=== PATIENT | male | born 1995 | race Caucasian/White ===

== ENCOUNTER 2018-09-05 04:08 | Emergency (ER) | payer BC, OTHER ==
[~2018-09-05 04:08] MED LIST: AMOX-362 PO; CEF300 PO; CLAR-1 PO; FLUT16SP19 NS; METH4TAB66 PO
--- NOTE | 2018-09-05 04:11 | ER Report ---
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 Patient apparently broke up with his girlfriend 8 months ago and dropped out of school. He is feeling depressed for 8 or 9 months. Tonight at a republican he was expressing suicidal ideation to his friends. He states he was given the home and blow his brains out with a shotgun. He does have a shotgun and a 45 caliber pistol in his residence. He also plan to get into a hot bathtub and drink a large volume of alcohol. Officer that placed the patient on emergency half-way states that the patient has done some self cutting in the past. But none recently. REVIEW OF SYSTEMS: Respiratory: No cough, no dyspnea. Cardiovascular: No chest pain, no palpitations. Gastrointestinal: No vomiting, no abdominal pain. Musculoskeletal: No back pain. (ANTONIETA LOZANO DO) Allergies: Coded Allergies: No Known Drug Allergies (Unverified , 09/05/18) Home Meds Discontinued Scripts Clarithromycin (CLARITHROMYCIN) 500 Mg Tablet, 500 MG PO BID for 14 Days, #28 TAB Prov:BREANA GARNICA JR, MD 05/22/17 Methylprednisolone (METHYLPREDNISOLONE) 4 Mg Tab.ds.pk, 4 MG PO DIRECTED, #1 PACK Prov:BREANA GARNICA JR, MD 05/07/17 Cefdinir 300 Mg Cap (OMNICEF 300 MG CAP (OR EQUIV)) 300 Mg Cap, 300 MG PO BID for 14 Days, #28 CAP Prov:BREANA GARNICA JR, MD 05/07/17 Fluticasone Prop 50 Mcg Ns (FLONASE 50 MCG NS) 16 Gm [place].susp, 1-2 SPRAY NS QAM, #1 BOT Prov:LINDY ANGELES MD 04/28/17 Amoxicillin (AMOXICILLIN) 500 Mg Capsule, 2 CAP PO TID, #60 CAPSULE Prov:LINDY ANGELES MD 04/14/17 Past Medical/Surgical History Past Medical History Respiratory: Reports hx of: pneumonia (as a toddler) Endocrine: Reports hx of: other endocrine history (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, 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) Past Surgical History HEENT: Reports hx of: dental surgery (wisdom teeth removal 2014) (ANTONIETA LOZANO DO) Reviewed Nurses Notes: Yes Old Medical Records Reviewed: Yes (ANTONIETA LOZANO DO) Smoking Status: Never Smoker (ANTONIETA LOZANO DO) Constitutional Vital Sign - Last 24 Hours 09/05/18 09/05/18 09/05/18 09/05/18 04:11 04:12 04:23 04:30 Temp 97.5 Pulse 80 81 Resp 16 B/P (MAP) 144/105 144/105 (118) 148/105 (119) Pulse Ox 92 94 O2 Delivery Room Air 09/05/18 04:38 Pulse 87 Pulse Ox 93 (HERIBERTO BECERRIL MD) Physical Exam General Appearance: The patient is alert, has no immediate need for airway protection and no current signs of toxicity. Tearful, withdrawn, upset HEENT: Pupils equal and round no injection. Oropharynx without redness or exudate Respiratory: Chest is non tender, lungs are clear to auscultation. Cardiac: regular rate and rhythm Gastrointestinal: Abdomen is soft and non tender, no masses, bowel sounds normal. Musculoskeletal: Neck: Neck is supple and non tender. No lymphadenopathy, no thyromegaly Extremities have full range of motion and are non tender. Skin: No rashes or lesions. DIFFERENTIAL DIAGNOSIS: After history and physical exam differential diagnosis was considered for depression including functional and major depression, situational depression, medication side effect, suicidal ideation, drugs and alcohol abuse. (ANTONIETA LOZANO DO) Medical Decision Making Data Points Result Diagram: 09/05/18 0456 09/05/18 0456 Laboratory Hematology Test 09/05/18 04:56 09/05/18 05:00 Red Blood Count 5.46 M/uL (4.00-5.60) Mean Corpuscular Volume 89.1 fL (80.0-96.0) Mean Corpuscular Hemoglobin 31.3 pg (26.0-33.0) Mean Corpuscular Hemoglobin Concent 35.1 g/dL (32.0-36.0) Red Cell Distribution Width 12.4 % (11.5-14.5) Mean Platelet Volume 7.7 fL (7.2-11.1) Neutrophils (%) (Auto) 53.8 % (39.4-72.5) Lymphocytes (%) (Auto) 38.4 % (17.6-49.6) Monocytes (%) (Auto) 6.6 % (4.1-12.4) Eosinophils (%) (Auto) 0.7 % (0.4-6.7) Basophils (%) (Auto) 0.5 % (0.3-1.4) Nucleated RBC Relative Count (auto) 0.0 /100WBC Neutrophils # (Auto) 4.1 K/uL (2.0-7.4) Lymphocytes # (Auto) 2.9 K/uL (1.3-3.6) Monocytes # (Auto) 0.5 K/uL (0.3-1.0) Eosinophils # (Auto) 0.1 K/uL (0.0-0.5) Basophils # (Auto) 0.0 K/uL (0.0-0.1) Nucleated RBC Absolute Count (auto) 0.00 K/uL Sodium Level 146 mmol/L (137-145) Potassium Level 4.8 mmol/L (3.5-5.0) Chloride Level 103 mmol/L (98-107) Carbon Dioxide Level 28 mmol/L (22-30) Blood Urea Nitrogen 12 mg/dl (9-21) Creatinine 0.80 mg/dl (0.66-1.25) Glomerular Filtration Rate Calc > 60.0 Random Glucose 104 mg/dl (75-110) Calcium Level 9.8 mg/dl (8.4-10.2) Magnesium Level 2.3 mg/dl (1.7-2.2) Total Bilirubin 0.3 mg/dl (0.2-1.3) Aspartate Amino Transf (AST/SGOT) 45 U/L (0-35) Alanine Aminotransferase (ALT/SGPT) 34 U/L (0-56) Alkaline Phosphatase 63 U/L (0-126) Total Protein 8.2 g/dl (6.3-8.2) Albumin 5.3 g/dl (3.5-5.0) Salicylates Level < 10 mg/L Salicylate Last Dose Date unk Acetaminophen Level < 10 ug/ml Serum Alcohol 195 mg/dl Urine Color Yellow Urine Clarity Clear Urine pH 5.0 pH (4.8-9.5) Urine Specific [place] 1.013 Urine Protein Negative mg/dL (NEGATIVE) Urine Glucose (UA) Negative mg/dL (NEGATIVE) Urine Ketones Negative mg/dL (NEGATIVE) Urine Blood Negative (NEGATIVE) Urine Nitrite Negative (NEGATIVE) Urine Bilirubin Negative (NEGATIVE) Urine Urobilinogen Negative mg/dL (0.2-1.9) Urine Leukocyte Esterase Negative (NEGATIVE) Urine RBC <1 /HPF (0-2/HPF) Urine WBC 1 /HPF (0-5/HPF) Urine Squamous Epithelial Cells None /LPF (</=FEW) Urine Bacteria Negative /HPF (NONE-FEW) Urine Mucus None /HPF (NONE-FEW) Urine Opiates Screen Negative Urine Barbiturates Screen Negative Ur Tricyclic Antidepressants Screen Negative Urine Phencyclidine Screen Negative Urine Amphetamines Screen Negative Urine Benzodiazepines Screen Negative Urine Cocaine Screen Negative Urine Cannabinoids Screen Positive Chemistry Test 09/05/18 04:56 09/05/18 05:00 White Blood Count 7.6 k/uL (4.5-11.0) Red Blood Count 5.46 M/uL (4.00-5.60) Hemoglobin 17.1 g/dL (14.0-18.0) Hematocrit 48.6 % (42.0-52.0) Mean Corpuscular Volume 89.1 fL (80.0-96.0) Mean Corpuscular Hemoglobin 31.3 pg (26.0-33.0) Mean Corpuscular Hemoglobin Concent 35.1 g/dL (32.0-36.0) Red Cell Distribution Width 12.4 % (11.5-14.5) Platelet Count 301 K/uL (150-450) Mean Platelet Volume 7.7 fL (7.2-11.1) Neutrophils (%) (Auto) 53.8 % (39.4-72.5) Lymphocytes (%) (Auto) 38.4 % (17.6-49.6) Monocytes (%) (Auto) 6.6 % (4.1-12.4) Eosinophils (%) (Auto) 0.7 % (0.4-6.7) Basophils (%) (Auto) 0.5 % (0.3-1.4) Nucleated RBC Relative Count (auto) 0.0 /100WBC Neutrophils # (Auto) 4.1 K/uL (2.0-7.4) Lymphocytes # (Auto) 2.9 K/uL (1.3-3.6) Monocytes # (Auto) 0.5 K/uL (0.3-1.0) Eosinophils # (Auto) 0.1 K/uL (0.0-0.5) Basophils # (Auto) 0.0 K/uL (0.0-0.1) Nucleated RBC Absolute Count (auto) 0.00 K/uL Glomerular Filtration Rate Calc > 60.0 Calcium Level 9.8 mg/dl (8.4-10.2) Magnesium Level 2.3 mg/dl (1.7-2.2) Total Bilirubin 0.3 mg/dl (0.2-1.3) Aspartate Amino Transf (AST/SGOT) 45 U/L (0-35) Alanine Aminotransferase (ALT/SGPT) 34 U/L (0-56) Alkaline Phosphatase 63 U/L (0-126) Total Protein 8.2 g/dl (6.3-8.2) Albumin 5.3 g/dl (3.5-5.0) Salicylates Level < 10 mg/L Salicylate Last Dose Date unk Acetaminophen Level < 10 ug/ml Serum Alcohol 195 mg/dl Urine Color Yellow Urine Clarity Clear Urine pH 5.0 pH (4.8-9.5) Urine Specific [place] 1.013 Urine Protein Negative mg/dL (NEGATIVE) Urine Glucose (UA) Negative mg/dL (NEGATIVE) Urine Ketones Negative mg/dL (NEGATIVE) Urine Blood Negative (NEGATIVE) Urine Nitrite Negative (NEGATIVE) Urine Bilirubin Negative (NEGATIVE) Urine Urobilinogen Negative mg/dL (0.2-1.9) Urine Leukocyte Esterase Negative (NEGATIVE) Urine RBC <1 /HPF (0-2/HPF) Urine WBC 1 /HPF (0-5/HPF) Urine Squamous Epithelial Cells None /LPF (</=FEW) Urine Bacteria Negative /HPF (NONE-FEW) Urine Mucus None /HPF (NONE-FEW) Urine Opiates Screen Negative Urine Barbiturates Screen Negative Ur Tricyclic Antidepressants Screen Negative Urine Phencyclidine Screen Negative Urine Amphetamines Screen Negative Urine Benzodiazepines Screen Negative Urine Cocaine Screen Negative Urine Cannabinoids Screen Positive Toxicology Test 09/05/18 04:56 09/05/18 05:00 Salicylates Level < 10 mg/L Salicylate Last Dose Date unk Acetaminophen Level < 10 ug/ml Serum Alcohol 195 mg/dl Urine Opiates Screen Negative Urine Barbiturates Screen Negative Ur Tricyclic Antidepressants Screen Negative Urine Phencyclidine Screen Negative Urine Amphetamines Screen Negative Urine Benzodiazepines Screen Negative Urine Cocaine Screen Negative Urine Cannabinoids Screen Positive Urinalysis Test 09/05/18 05:00 Urine Color Yellow Urine Clarity Clear Urine pH 5.0 pH (4.8-9.5) Urine Specific [place] 1.013 Urine Protein Negative mg/dL (NEGATIVE) Urine Glucose (UA) Negative mg/dL (NEGATIVE) Urine Ketones Negative mg/dL (NEGATIVE) Urine Blood Negative (NEGATIVE) Urine Nitrite Negative (NEGATIVE) Urine Bilirubin Negative (NEGATIVE) Urine Urobilinogen Negative mg/dL (0.2-1.9) Urine Leukocyte Esterase Negative (NEGATIVE) Urine RBC <1 /HPF (0-2/HPF) Urine WBC 1 /HPF (0-5/HPF) Urine Squamous Epithelial Cells None /LPF (</=FEW) Urine Bacteria Negative /HPF (NONE-FEW) Urine Mucus None /HPF (NONE-FEW) (HERIBERTO BECERRIL MD) ED Course/Re-evaluation ED Course Patient was admitted to an examination room. H&P was done. The differential diagnoses was considered. On clinical examination. Patient is withdrawn and tearful. He's upset. Patient was expressing suicidal ideation to a friend of his is a were walking home from a republican. He was grossly intoxicated. When officers responded. He was expressing that he might also sit in a bathtub full hot water and drink a large bottle of alcohol. Patient on arrival denies suici ld ideation. He states that his friend was overreacting. I think patient is potentially moderate high risk of suicidal behavior. I think the half-way is to be upheld. I've completed title 25 evaluation agreeing that the patient is high risk and needs to be held for 72 hours. We'll begin working on at transfer, since the behavioral health unit is on aggression divert. 09/05/2018 6:09:52 am this was discussed with Rosmery Lopez nurse practitioner on the behavioral health service. Since patient is expressed aggressive behavior here in the emergency department. They're reluctant to take him since they are progression divert. Part of the unit was destroyed by another patient in the seclusion room is unavailable. Should this patient act out. We will begin working on a transfer to a facility that can provide mental health care to this patient. 09/05/2018 6:12:38 [facility] was contacted. They have a potential bed available. They're mental health people will not be available until 8 AM for contact and evaluation. Decision to Disposition Date: Sep 05, 2018 Decision to Disposition Time: 04:22 (ANTONIETA LOZANO DO) ED Course 09/05/2018 8:48:44 am spoke with Renetta twice a day Have a bed available for at least the next 24 hours. We're attempting to call [facility] see if they have any bed availability. 09/05/2018 11:08:00 am patient accepted upstairs at [facility] for psychiatric evaluation. Decision to Disposition Date: Sep 05, 2018 Decision to Disposition Time: 11:08 (HERIBERTO BECERRIL MD) Date of Report: Sep 05, 2018 Examiner: Dr. Lozano Patient Detained By: Law Enforcement Date Patient Detained: Sep 05, 2018 Time Patient Detained: 04:03 Date Fci Expires: Sep 08, 2018 Time Fci Expires: 04:03 Legal Status: Relationship: Single Legal Status: Residence: [facility] Resident Assessment Data Provided By: Patient, Law Enforcement, Other Source (ANTONIETA LOZANO DO) Chief Complaint: Suicidal ideation HPI/ROS: 22-year-old male brought in by [place] police after expressing suicidal ideation at a republican after consuming alcohol beverages to a friend that he was going to commit suicide. Patient's been severely depressed for 8-9 months after breakup with his girlfriend. He dropped out of school for a semester. 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 Patient has of depression, takes antidepressants prescribed by primary care. She has no previous suicidal attempts. Patient's feeling overwhelmed by his school studies. Diagnosis: Severe depression with suicidal ideation Risk Formulation: Patient expresses to suicidal plans tonight. He has access to firearms at home. Shotgun and 45 caliber pistol. (ANTONIETA LOZANO DO) Current Dangerous Risk Assess: Current Suicide Ideation Current Risk Summary: Patient is likely moderate high risk. Patient has been severely depressed for 8 months. He has access to firearms. (ANTONIETA LOZANO DO) Depart Departure Latest Vital Signs Vital Signs Date Time Temp Pulse Resp B/P (MAP) Pulse Ox O2 Delivery O2 Flow Rate FiO2 09/05/18 04:38 87 93 09/05/18 04:30 148/105 (119) 09/05/18 04:11 97.5 16 Room Air (HERIBERTO BECERRIL MD) Impression: Primary Impression: Depression with suicidal ideation Additional Impressions: Alcohol intoxication Cannabis abuse Condition: Improved Disposition: XFER TO [facility] Referrals: LINDY ANGELES MD (PCP) New Scripts No Active Prescriptions or Reported Meds Problem Qualifiers Additional Impressions: Alcohol intoxication Complication of substance-induced condition: uncomplicated Qualified Codes: F10.920 - Alcohol use, unspecified with intoxication, uncomplicated ANTONIETA LOZANO DO Sep 05, 2018 04:11 HERIBERTO BECERRIL MD Sep 05, 2018 08:49
[2018-09-05 04:30] VITALS: BP 148/105
[2018-09-05 05:08] LABS: PLATELET COUNT, AUTOMATED 301 K/uL (150-450)
== END 2018-09-05 11:30 ==
LOC: ER 04:13
DX: F32.9 Major depressive disorder, single episode, unspecified (principal)
CPT/HCPCS: 36415; 80305; 80320; 80329; 81001; 82040; 82247; 82310; 82374; 82435; 82565; 82947; 83735; 84075; 84132; 84155; 84295; 84443; 84450; 84460; 84520; 85025; 99284

== ENCOUNTER 2018-09-05 11:16 | Inpatient (IN) | payer BC, OTHER ==
[2018-09-05] MEDS ORDERED: DIAZEPAM 10 MG TAB PO PRN (11:30)
[2018-09-05] MEDS ORDERED: LORazepam 1 MG TAB PO PRN (12:15)
[2018-09-05 12:25] VITALS: BP 130/82
[2018-09-05 16:30] VITALS: BP 132/84
--- NOTE | 2018-09-05 17:12 | BHS - Psychiatric Evaluation ---
ER - Title 25 MHE Evaluation Title 25 Evaluation Patient Detained By: Physician (ER physician, Dr. Lozano upheld this [place] [facility]), Law Enforcement ([place] initiated this [place] [facility]) Referral Source: Professsional: Law Enforcement Date Patient Detained: Sep 05, 2018 Time Patient Detained: 04:03 Date Mcc Expires: Sep 09, 2018 Time Mcc Expires: 00:00 Legal Status: Police Hold: No Legal Status: Residence: County Resident, State Resident, Student Assessment Data Provided By: Patient, Law Enforcement (81), Family Member(s) (patient mother), Other Source ([facility] Professional) HPI/ROS: From Dr. Samuel Lozano,"22-year-old male brought in by [employer] police after expressing suicidal ideation at a alliance party after consuming alcohol beverages to a friend that he was going to commit suicide. Patient's been severely depressed for 8-9 months after breakup with his girlfriend. He dropped out of school for a semester. 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 Patient has hx of depression, takes antidepressants prescribed by primary care. He has no previous suicidal attempts. Patient's feeling overwhelmed by his school studies." Admit due to SI or Attempt: Yes Suicide Plan: Has Plan with Access (Er noted patient has access to firearms) Current Suicide Plan Denies suicidality currently, want to return home. Alcohol or Drugs Involved: Yes (Positive toxicity screen for cannabis) Is Patient Info Reliable: Yes (Patient reports he is no longer feeling suicidal. Now he this feeling has been replaced by anger that he has been detained. ) Is Collateral Info Reliable: Yes (Patient mother is a reliable medical recruiter.) Current Home Psych Meds: None noted. Mental Status Exam General Appearance: Good Eye Contact (Little eye contact), Polite (Annoyed) Speech: Clear Mood: Dysthmic/Depressed, Other (Frustrated) Affect: Withdrawn, Agitated Thought Process: Goal Directed (Wants to go home) Thought Content: Suicidal Ideation (Denies at this time.) Cognition: Alert & Oriented-Person, Alert & Oriented-Place, Alert & Oriented- Time Memory: Immediate, Recent, Remote Insight Judgment: Poor Delusions: Denies Current Risk & History Current Dangerous Risk Assessm: Current Suicide Ideation (Denies), Protective Factors (patient mother reports he is doing well this semester despite difficulty with depression.) Past Dangerous Risk Assessm: Suicide Ideation-last 6mo (Denies) Previous Suicide Attempt: No Previous Attempt Previous Psychiatric Illness: Yes (Patient says he has been seriously depressed for over eight months.) Previous Diagnosis/Treatment: Major Depressive Disorder Previous Psychiatric Treatment: Yes (Patient says he has a prescribing primary care physician treating him for depression.) Previous Treatment Description Says he has been struggling with significant depression Risk Assessment & Disposition Evaluated Risk Assessment: Patient shared with ER physician Dr Lozano, that he is depressed, has been struggling with depression, and has access to fire arms. Patient came to the attention of Law Enforcement because he told at least one other person that he was going to end his life. Patient has intense mood even at the time of this interview. He is angry that he is detained and blames others. Appropriate assessment and intervention will be provided client to help support his reported ongoing struggles in the Least Restrictive Environment possible. Impression: Primary Impression: Alcohol intoxication Additional Impressions: Depression with suicidal ideation Cannabis abuse Meets Mental Illness Req.: Yes Meets Dangerousness Req.: Yes Emergency Mcc to be: Upheld Decision Comment: Patient will be provided with assessment and a stabilizing environment given his symptomology luiz to the level of professional intervention. Appropriate supports will be provided. Date of Decision: Sep 05, 2018 Time of Decision: 17:10 Patient is Medically Stable at: Yes Disposition: [facility] Problem Qualifiers SANGITA OLIVO LPC Sep 05, 2018 17:12
--- NOTE | 2018-09-06 05:11 | ROMSA H&P ---
DATE OF ADMISSION: September 05, 2018 ATTENDING PROVIDER Rosmery Lopez, Psychiatric/Mental Health Nurse Practitioner PRESENTING PROBLEM/CHIEF COMPLAINT "I was studying all day yesterday, and at 8 o'clock went ice skating, then to a small alliance party. I drank a little bit and was talking to my best friend, Jovan. I had a brief summer relationship and got my heart broken and then took a semester off school. I haven't been working. I've been dealing with my issues, but I'm not necessarily a happy camper. I think my friends got worried for my health. The officer detained me and here I am. 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 He states that approximately eight months ago, a girlfriend and he broke up. He took a semester off school and has been trying to heal from this. He reports that he went to a alliance party last night and had been drinking. He reports that he drank daily in the past for approximately one month after the breakup, although realized the alcohol was not going to heal his broken heart, in his words. He drank approximately six tall beers last night and reports that he had been talking to his friend Jovan. He left the alliance party and walked home at about 3:30. When he arrived at his home, officers were at his door. He states, "Under the influence of alcohol, I gave an honest answer." He reported that if he were to think about hurting himself, he would use a shotgun or sit in the tub, get drunk, and take a bunch of pills. He states that he was not suicidal, but answering the question that the officers presented to him in an honest way. He was emergency detained, brought to the emergency room, where he was initially combative, and officers had to remain in the room, and he was handcuffed. Over the course of a few hours, because the Behavioral Health Unit was on aggression divert for admissions, he was stabilized in the emergency room, calmed down, and was appropriate for admission. Patient reports that along with healing from a past relationship over the last eight months, he also sustained an abdominal injury from a ski accident where he fell 50 feet two weeks ago. He normally exercises and is an aggressive athlete, although without that being an option for him the last two weeks, his stress has increased. He has four tests upcoming this week. 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 At the time of initial interview, his depression he describes as "in and out" since his injury. He rates his depression a 5 out of 10. When asked about suicidal ideation, he states, "I'm an aggressive athlete, and I did fall 50 feet." He reports depression related to the injury, not being able to exercise as an outlet, and also school-related stressors. He states in regard to angry, "I had a coming to [place] with my anger after the breakup." He denies that anger is problematic at present time. His anxiety he rates a 10 out of 10. His sleep is variable due to long study hours. He sleeps approximately five hours. He denies nightmares, flashbacks. He reports his energy level and appetite are good. He reports he did gain 28 pounds last semester. He denies history of any eating-related disorders. He denies any PTSD symptoms, denies nightmares or flashbacks, denies history of physical, emotional or sexual abuse. He denies history of cassandra or psychosis. He currently denies auditory or visual hallucinations or paranoia. He again was transferred to Behavioral Health Unit and was cooperative during the initial interview once he arrived on the unit. MENTAL HEALTH HISTORY The patient has never been an inpatient on a psychiatric unit. He has never engaged in any individual or group therapy. He has never taken a psychotropic medication and denies history of suicide attempts. In his emergency room record, it states that he previously cut, but no recent cutting, although patient denies that he has ever been a cutter. He reports that he does misuse stimulants at times to help him with study. In fact, he reports that he did take Concerta yesterday prior to admission in order to help him with studying. He has also misused prescriptions of Adderall and Ritalin for focus and concentration, although these were not prescribed to him. FAMILY PSYCHIATRIC HISTORY The patient denies any knowledge of family mental health issues. PAST MEDICAL HISTORY Again, patient sustained a ski-related injury where he fell 50 feet two weeks ago. He was worked up medically with no conclusive results other than possible rib injuries. He had pneumonia as a child. He also has a history of sports- related concussions, one in the fifth grade when playing flag football, where he believes he lost consciousness. 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 He has no known drug allergies. He is currently not on any prescribed medications. SOCIAL HISTORY The patient was born and raised in [place], [place]. His parents were at the time of his . They remain . He has two older sisters. He has never been , has no children. He is currently not working. He lives in a house in [place] with three roommates, whom he gets along with. His family moved to [place] after his sophomore college year. He is currently a senior civil engineering student and reports good grades. He states that he has only had three Cs in his engineering school path. He had a breakup with a girlfriend eight months ago, although he had been healing from this. 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 He also reports that he enjoys skiing, motocross, and basketball. LEGAL HISTORY Patient reports previous history of MIP and disorderly conduct due to a fraternity incident in which he was the oldest frat member with 500 people present, many of whom were under the influence of alcohol and underage. He denies being on probation, denies halfway time. SUBSTANCE ABUSE HISTORY Patient does chew tobacco the last four years. He reports in regard to his alcohol use, he began drinking at age 18. He states, "I used to drink a lot." After the breakup, he reports binge drinking for approximately one month. He reports sporadic drinking at the present time. He is vague about frequency and amount, although prior to admission, he reports drinking at least a six-pack of tall beers prior to being brought in last night. He smokes cannabis one to two times per week. He denies history of heroin, methamphetamine use, and does again admit to misusing stimulants in order to help him study, including Ritalin, Adderall, and Concerta, which are not prescribed to him. PHYSICAL EXAMINATION Please see emergency room note for physical exam. Vital signs at time of admission including temperature 97.5, pulse 80, respiratory rate 16, blood pressure 144/105, and pulse oximetry 92% on room air. LABORATORY DATA CBC within normal limits. Chemistry panel within normal limits. Magnesium slightly elevated at 2.3. AST elevated at 45. Albumin elevated at 5.3. Thyroid stimulating hormone is pending. Urine screen within normal limits. Toxicology includes serum alcohol level 195, salicylate and acetaminophen levels less than 10. Urine screen negative for opiates, barbiturates, tricyclics, phencyclidine, amphetamines, benzodiazepines, and cocaine, positive for cannabinoids, which he admits to using. MENTAL STATUS EXAMINATION GENERAL APPEARANCE, BEHAVIOR AND ATTITUDE: The patient is calm and cooperative at time of initial interview. No periods of tearfulness. No psychomotor agitation or retardation. SPEECH: Regular rate, rhythm, volume and tone. MOOD: Dysthymic and anxious. AFFECT: Mood-congruent. THOUGHT PROCESSES: Logical and goal-directed; no loose associations or flight of ideas. THOUGHT CONTENT: Free of auditory or visual hallucinations, ideas of reference, thought broadcasting, delusions, obsessions or compulsions. The patient is denying suicidal or homicidal ideations. SENSORIUM: Clear. COGNITION: Alert and oriented to person, place, time and situation. MEMORY: Immediate, recent and remote intact. INTELLIGENCE: Average, based on interview. INSIGHT AND JUDGMENT: Considered fair as alcohol level is decreasing. 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 He decided to walk home at some point and had mentioned to his friend some suicidal ideation. The friend called the police. They were waiting for him at his home. Patient states he answered the officers honestly and that when he thinks of suicide, he has thought about firearm or drinking in a bathtub and possibly taking overdose of medications. However, he states that that was under the influence of alcohol; he denies any urge to harm himself or others. He is frustrated with the fact that he was emergency detained, although reviewed at length the safety precautions and the intent to help him during his hospitalization. Patient was combative during the emergency room stay, and officers had to cuff him and be at his bedside, although patient was able to calm himself down without medications and was appropriate for admission to Behavioral Health Unit and transferred appropriately. DIAGNOSES PER DSM-V 1. Adjustment disorder with mixed anxiety and depressed mood. 2. Alcohol intoxication. 3. Cannabis use disorder, mild. 4. Problems related to school and past relationship stressors. PLAN 1. Will admit to the unit. 2. Necessary precautions will be implemented. 3. Individual and group therapy to be initiated. 4. Medications will be administered and titrated accordingly. 5. Further labs and imaging as appropriate. 6. Estimated length of stay three to five days. 7. Ongoing coordination of care with [facility] and thread checker to reintegrate into classes. 8. Options for outpatient individual therapy to be reviewed prior to discharge. RODDY
[2018-09-06 06:01] VITALS: BP 115/75
[2018-09-06] MEDS ORDERED: MULTIVITAMINS TAB PO SCH (09:00)
--- NOTE | 2018-09-06 13:08 | BHS Discharge Summary ---
[facility] Discharge Summary Vqyd-uh-Roqf Encounter Date: Sep 06, 2018 Teyx-jy-Saqg Encounter Time: 09:50 Reason-Hosp/Final Diag (DSM-V): (1) Adjustment disorder with mixed anxiety and depressed mood Hospital Course & Plan: PRESENTING PROBLEM/CHIEF COMPLAINT "I was studying all day yesterday, and at 8 o'clock went ice skating, then to a small alliance party. I drank a little bit and was talking to my best friend, Jovan. I had a brief summer relationship and got my heart broken and then took a semester off school. I haven't been working. I've been dealing with my issues, but I'm not necessarily a happy camper. I think my friends got worried for my health. The officer detained me and here I am. 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 He states that approximately eight months ago, a girlfriend and he broke up. He took a semester off school and has been trying to heal from this. He reports that he went to a alliance party last night and had been drinking. He reports that he drank daily in the past for approximately one month after the breakup, although realized the alcohol was not going to heal his broken heart, in his words. He drank approximately six tall beers last night and reports that he had been talking to his friend Jovan. He left the alliance party and walked home at about 3:30. When he arrived at his home, officers were at his door. He states, "Under the influence of alcohol, I gave an honest answer." He reported that if he were to think about hurting himself, he would use a shotgun or sit in the tub, get drunk, and take a bunch of pills. He states that he was not suicidal, but answering the question that the officers presented to him in an honest way. He was emergency detained, brought to the emergency room, where he was initially combative, and officers had to remain in the room, and he was handcuffed. Over the course of a few hours, because the Behavioral Health Unit was on aggression divert for admissions, he was stabilized in the emergency room, calmed down, and was appropriate for admission. Patient reports that along with healing from a past relationship over the last eight months, he also sustained an abdominal injury from a ski accident where he fell 50 feet two weeks ago. He normally exercises and is an aggressive athlete, although without that being an option for him the last two weeks, his stress has increased. He has four tests upcoming this week. 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 At the time of initial interview, his depression he describes as "in and out" since his injury. He rates his depression a 5 out of 10. When asked about suicidal ideation, he states, "I'm an aggressive athlete, and I did fall 50 feet." He reports depression related to the injury, not being able to exercise as an outlet, and also school-related stressors. He states in regard to angry, "I had a coming to [facility] with my anger after the breakup." He denies that anger is problematic at present time. His anxiety he rates a 10 out of 10. His sleep is variable due to long study hours. He sleeps approximately five hours. He denies nightmares, flashbacks. He reports his energy level and appetite are good. He reports he did gain 28 pounds last semester. He denies history of any eating-related disorders. He denies any PTSD symptoms, denies nightmares or flashbacks, denies history of physical, emotional or sexual abuse. He denies history of cassandra or psychosis. He currently denies auditory or visual hallucina tions or paranoia. He again was transferred to Behavioral Health Unit and was cooperative during the initial interview once he arrived on the unit. HOSPITAL COURSE Pt was admitted to [facility] and maintained on suicide precautions. Pt was cooperative at all times. He continued to state that he had never been suicidal at all, that he felt the hander in misunderstood him. There was no indication that an antidepressant was indicated, especially since he said his depression had actually been a lot worse this past Fall, and that now that he's been back in school this semester he has been doing a lot better. The second hospital day we met with pt. and with his mother, who was warm and supportive. She was clear that she did not worry that he was suicidal and that she agreed he had actually been struggling more last Fall, and that at that time he coped by doing a lot of writing, short stories/novels. We discussed his use of cannabis, alcohol, and use of amphetamines to study-- he understands that these only make his mood worse, and he verbalized intent to at minimum decrease his use of alcohol and abstain from cannabis and his peers' ADHD medications. His firearms have been secured by his father, at least until the end of this semester. Pt agrees to attend outpatient therapy after discharge to work on coping skills. We arranged an outpatient follow up appointment for him at [facility], and an appointment at the [facility] office so he can return to classes. He was discharged in stable and improved condition. (2) Alcohol use disorder, mild, abuse (3) Cannabis use disorder, mild, abuse (4) Amphetamine use disorder, mild Physical Exam Latest Vital Signs Vital Signs 09/06/18 06:01 Temp 97.8 Pulse 59 Resp 15 B/P (MAP) 115/75 (88) Pulse Ox 94 O2 Delivery Room Air Mental Status Exam General Appearance: Casual, Well Groomed, Good Eye Contact, Cooperative, Polite, Good Interaction Speech: Clear, Spontaneous, Normal Rate, Normal Rhythm, Normal Volume, Normal Tone Mood: Euthymic, Other ( frustrated with the skilled nursing process, anxious to get back to his classes) Affect: Full and Appropriate Thought Process: Organized, Logical, Goal Directed Thought Content: No Suicidal Ideation, No Homicidal Ideation, No Delusions, No Auditory Halllucinations, No Visual Hallucinations, No Thought Broadcasting, No Ideas of Reference, No Obsessions, No Compulsions, No Other Sensorium: Clear Cognition: Alert & Oriented-Person, Alert & Oriented-Place, Alert & Oriented- Time, Eyqgu-Vthilnhk-Vivjaqazh Memory: Immediate, Recent, Remote Intelligence: Above Average Insight Judgment: Good Departure Item Value Date Time White Blood Count 7.6 k/uL 09/05/18455 Red Blood Count 5.46 M/uL 09/05/18455 Hemoglobin 17.1 g/dL 09/05/18455 Hematocrit 48.6 % 09/05/18455 Mean Corpuscular Volume 89.1 fL 3/3/19 0456 Mean Corpuscular Hemoglobin 31.3 pg 09/05/186 Mean Corpuscular Hemoglobin Concent 35.1 g/dL 09/05/18455 Red Cell Distribution Width 12.4 % 09/05/18455 Platelet Count 301 K/uL 09/05/18 0456 Sodium Level 146 mmol/L H 09/05/18 0456 Potassium Level 4.8 mmol/L 09/05/186 Chloride Level 103 mmol/L 09/05/186 Carbon Dioxide Level 28 mmol/L 09/05/18 0456 Blood Urea Nitrogen 12 mg/dl 09/05/186 Creatinine 0.80 mg/dl 09/05/18455 Glomerular Filtration Rate Calc > 60.0 09/05/18455 Random Glucose 104 mg/dl 09/05/186 Calcium Level 9.8 mg/dl 09/05/186 Magnesium Level 2.3 mg/dl H 09/05/186 Total Bilirubin 0.3 mg/dl 09/05/186 Aspartate Amino Transf (AST/SGOT) 45 U/L H 09/05/18 0456 Alanine Aminotransferase (ALT/SGPT) 34 U/L 09/05/18 0456 Alkaline Phosphatase 63 U/L 09/05/186 Total Protein 8.2 g/dl 09/05/18 0456 Albumin 5.3 g/dl H 09/05/18 0456 Thyroid Stimulating Hormone (TSH) 2.12 uIU/ml 09/05/18 0456 Urine Color Yellow 09/05/18 0500 Urine Clarity Clear 09/05/18 0500 Urine pH 5.0 pH 09/05/18 0500 Urine Specific [place] 1.013 09/05/18 0500 Urine Protein Negative mg/dL 09/05/18 0500 Urine Glucose (UA) Negative mg/dL 09/05/18 0500 Urine Ketones Negative mg/dL 09/05/18 0500 Urine Blood Negative 09/05/18 0500 Urine Nitrite Negative 09/05/18 0500 Urine Bilirubin Negative 09/05/18 0500 Urine Urobilinogen Negative mg/dL 09/05/18 0500 Urine Leukocyte Esterase Negative 09/05/18 0500 Urine RBC <1 /HPF 09/05/18 0500 Urine WBC 1 /HPF 09/05/18 0500 Urine Squamous Epithelial Cells None /LPF 09/05/18 0500 Urine Bacteria Negative /HPF 09/05/18 0500 Urine Mucus None /HPF 09/05/18 0500 Salicylates Level < 10 mg/L 09/05/18 0456 Salicylate Last Dose Date unk 09/05/18 0456 Urine Opiates Screen Negative 09/05/18 0500 Acetaminophen Level < 10 ug/ml 09/05/18 0456 Urine Barbiturates Screen Negative 09/05/18 0500 Ur Tricyclic Antidepressants Screen Negative 09/05/18 0500 Urine Phencyclidine Screen Negative 09/05/18 0500 Urine Amphetamines Screen Negative 09/05/18 0500 Urine Benzodiazepines Screen Negative 09/05/18 0500 Urine Cocaine Screen Negative 09/05/18 0500 Urine Cannabinoids Screen Positive 09/05/18 0500 Serum Alcohol 195 mg/dl 09/05/18 0456 Condition: Improved Discharge to: Home Discharge Instructions Home Meds Discontinued Scripts Clarithromycin (CLARITHROMYCIN) 500 Mg Tablet, 500 MG PO BID for 14 Days, #28 TAB Prov:BREANA GARNICA JR, MD 05/22/17 Methylprednisolone (METHYLPREDNISOLONE) 4 Mg Tab.ds.pk, 4 MG PO DIRECTED, #1 PACK Prov:BREANA GARNICA JR, MD 05/07/17 Cefdinir 300 Mg Cap (OMNICEF 300 MG CAP (OR EQUIV)) 300 Mg Cap, 300 MG PO BID for 14 Days, #28 CAP Prov:BREANA GARNICA JR, MD 05/07/17 Fluticasone Prop 50 Mcg Ns (FLONASE 50 MCG NS) 16 Gm Ethel.susp, 1-2 SPRAY NS QAM, #1 BOT Prov:LINDY ANGELES MD 04/28/17 Amoxicillin (AMOXICILLIN) 500 Mg Capsule, 2 CAP PO TID, #60 CAPSULE Prov:LINDY ANGELES MD 04/14/17 Multpiple Antipsychotics Used: No Diet: Regular Activity: As Tolerated Special Instructions: Take medications as prescribed. Follow up with outpatient provider for medication management. Follow up with outpatient therapy. Avoid all illicit substances. Call Crisis Line should symptoms return. EUGENIA BOWMAN MD Sep 06, 2018 13:08
== END 2018-09-06 09:55 | disposition home or self-care (01) | DRG 882 ==
LOC: BHS 11:16
PROVIDERS: ADMIT Nurse Practitioner Psychiatric/Mental Health; ATTEND Nurse Practitioner Psychiatric/Mental Health
DX: F43.23 Adjustment disorder with mixed anxiety and depressed mood (principal); F10.120 Alcohol abuse with intoxication, uncomplicated; F12.10 Cannabis abuse, uncomplicated; F15.90 Other stimulant use, unspecified, uncomplicated; Y90.6 Blood alcohol level of 120-199 mg/100 ml; Z73.3 Stress, not elsewhere classified; Z55.8 Other problems related to education and literacy